=== PATIENT | female | born 1940 | race Caucasian/White ===

== ENCOUNTER → 2017-03-14 | Outpatient (CLI) | payer MEDICARE, BC ==
[~2017-03-14] MED LIST: ALCORTIN A TOP; ARIMIDEX1 MG PO; CALCIUM + D PO; DYAZIDE 37.5/251 CAP PO; FISH OIL500 M1 PO; JUICE PLUS PO; LIPITOR PO; MAGNESIUM MALATE PO; MULTI VITAMIN1 EACH PO; PANTOPRAZOLE SO20 MG PO; PROBIOTIC1 EAC3 PO; SIMVASTATIN20 MG PO; TAMOXIFEN CITRA20 MG PO; VITAMIN C500 M1 PO; VITAMIN D31000 UNI1 PO; ZEASORB AF TOP; ZYRTEC10 M1 PO
--- NOTE | ~2017-03-14 | MY28 ---
[facility] A Service of [facility] & [facility] RADIOLOGY TEXT RESULTS PATIENT: VIVI HARDY LOCATION: [facility] : 44 UNIT #: [id number] AGE: [address]: Angel Bergman MD SEX: F ORDER DR: [id number] [facility] [address] [place], [place] [address] [id number] O MR#: [id number] Acc #: [id number] NAME: VIVI HARDY : 1940 SEX: F STUDY DATE/TIME: 03/14/2017 9:15 UNIT: [facility] ROOM: STUDY DESCRIPTION: MY YUKI SCREEN W/ CAD UNI RT Attending Physician: Angel Bergman M.D. Referring Physician: Angel Bergman M.D. Ordering Physician: Angel Bergman M.D. Primary Care Physician: Sandeep Veloz M.D. MEDICAL IMAGING REPORT This report is preliminary unless electronic signature is present EXAM Unilateral right digital screening mammogram 03/14/2017 HISTORY 76-year-old woman. Personal and family history, maternal aunt. Left mastectomy 2008 with adjuvant therapy. Annual screen. COMPARISON STUDIES Comparison mammograms date 10/26/2006 with most recent 03/11/2016. FINDINGS Digital imaging of the right breast was completed utilizing screening protocol. Review includes FDA-approved CAD device. Breast parenchyma remains dense and heterogeneous with a generalized nodular pattern throughout. I see no interval occurring mass or interval occurring suspicious microcalcifications and no architectural deformity. IMPRESSION Stable benign unilateral right mammogram. Status post left mastectomy. Annual screening recommended. BIRADS II benign Patients over the age of 40 are entered into a reminder system with target due date for the next mammogram. A result letter will also be sent to the patient. BIRADS: 2 - Benign finding Dictated by... Romeo Mendoza M.D. THIS IS AN ELECTRONICALLY VERIFIED REPORT Romeo Mendoza M.D. at 03/15/2017 3:01 PM [email or web address]/[email or web address] [facility] A Service of [facility] & [facility] RADIOLOGY TEXT RESULTS PATIENT: [facility]IV[facility] HARDY [id number] : [birth year] UNIT #: [id number] AGE: [address]: Angel Bergman MD SEX: F ORDER DR: TD: 03/14/2017 17:47 JOB #: [id number] MEDICAL IMAGING REPORT Page 1 of 1 COPY
== END | disposition home or self-care (01) ==
LOC: CWCC 08:57
DX: Z12.31 Encounter for screening mammogram for malignant neoplasm of breast (principal); Z85.3 Personal history of malignant neoplasm of breast; Z80.3 Family history of malignant neoplasm of breast; Z90.12 Acquired absence of left breast and nipple
CPT/HCPCS: G0202

== ENCOUNTER 2017-05-05 08:38 | Emergency (ER) | payer MEDICARE, BC ==
[~2017-05-05] VITALS: Ht 154.9 cm; Wt 68.0 kg
== END 2017-05-05 11:19 | disposition home or self-care (01) ==
LOC: CFTX 08:38 → CED 08:38
DX: L23.7 Allergic contact dermatitis due to plants, except food (principal)
CPT/HCPCS: 96372; 99283; J1200